=== PATIENT | female | born 1990 | race African-American/Black ===

== ENCOUNTER → 2021-04-24 | Outpatient (CLI) | payer OTHER ==
--- NOTE | 2021-04-25 10:31 | USB ---
Reason for exam: clinical finding. Physical Findings: Nurse did not find any significant physical abnormalities on exam. US Breast RT Right complete breast ultrasound includes all four quadrants, the retroareolar region and axilla. Finding demonstrates no cystic or solid lesion seen. These results were verbally communicated with the patient and result sheet given to the patient on 04/24/21. ASSESSMENT: Negative, BI-RAD 1 RECOMMENDATION: Routine screening mammogram of both breasts at age 42. (unless clinical indication to start sooner) Manage patient on a clinical basis. Clinical follow up for any suspicious palpable abnormality.
== END | disposition home or self-care (01) ==
LOC: RADUSWWP 14:56
PROVIDERS: ATTEND Family Medicine
DX: R92.8 Other abnormal and inconclusive findings on diagnostic imaging of breast (principal)

== ENCOUNTER → 2022-12-22 | Outpatient (CLI) | payer OTHER | LOC: CPPFTMAIN 16:34 | PROVIDERS: ATTEND Family Medicine | DX: J45.30 Mild persistent asthma, uncomplicated (principal) | CPT/HCPCS: 94060; 94726; 94729 ==

== ENCOUNTER 2024-02-07 20:57 | Emergency (ER) | payer SELFPAY ==
[2024-02-07 21:08] VITALS: TEMP 98
[2024-02-07] MEDS: KETOCONAZOLE 2% SHAMPOO 1 APPLIC/ML TOPICAL STA (21:35)
--- NOTE | 2024-02-07 21:50 | ED ---
Recheck HPI - General Chief Complaint: Recheck/Abnormal Lab/Rx Stated Complaint: Med refill-Seizures Time Seen by Provider: 02/07/24 21:09 Source: patient, RN notes reviewed Mode of arrival: ambulatory Limitations: no limitations - History of Present Illness Initial Comments: This is a 34-year-old female who presents to the emergency department for a med ication refill. Patient has a seizure disorder and most recently had a seizure a month ago. Currently taking Keppra 500 mg twice daily and Depakote 500 mg twice daily. She just finished her last dose of medication today. She does admit to a few missed doses here and there but is otherwise taking it as prescribed. Denies any side effects. She has lost her insurance for period of time and just got it back. She is currently looking for a local neurologist. Additionally, she reports dryness or scabs on her scalp and inquired about treatment for this. States that these are fairly itchy. - Related Data Previous Rx's Medication Instructions Recorded Divalproex [Depakote] 500 mg PO BID #60 tab 02/07/24 Divalproex [Depakote] 500 mg PO BID #60 tab 02/07/24 levETIRAcetam [Keppra] 500 mg PO Q12HR #60 tab 02/07/24 levETIRAcetam [Keppra] 500 mg PO Q12HR #60 tab 02/07/24 Allergies Allergy/AdvReac Type Severity Reaction Status Date / Time lamotrigine [From Lamictal] Allergy Unknown Verified 02/07/24 21:08 Review of Systems ROS Statement: Those systems with pertinent positive or pertinent negative responses have been documented in the HPI. ROS Other: All systems not noted in ROS Statement are negative. Past Medical History Past Medical History: Asthma, Seizure Disorder History of Any Multi-Drug Resistant Organisms: None Reported Past Surgical History: No Surgical Hx Reported Past Psychological History: No Psychological Hx Reported Smoking Status: Never smoker Past Alcohol Use History: Occasional Past Drug Use History: Marijuana General Exam Limitations: no limitations General appearance: alert, in no apparent distress Head exam: Present: other (Few areas of dry skin on the scalp. No discoloration or active bleeding.) Eye exam: Present: normal appearance, PERRL, EOMI. Absent: scleral icterus, conjunctival injection, periorbital swelling Respiratory exam: Present: normal lung sounds bilaterally. Absent: respiratory distress, wheezes, rales, rhonchi, stridor Cardiovascular Exam: Present: regular rate, normal rhythm, normal heart sounds. Absent: systolic murmur, diastolic murmur, rubs, gallop, clicks Neurological exam: Present: alert, oriented X3, CN II-XII intact Psychiatric exam: Present: normal affect, normal mood Skin exam: Present: warm, dry Course Vital Signs 02/07/24 02/07/24 21:02 21:55 Temperature 98.0 F Pulse Rate 79 85 Respiratory 18 16 Rate Blood Pressure 110/73 117/76 O2 Sat by Pulse 100 100 Oximetry Medical Decision Making - Medical Decision Making This is a 34-year-old female who presents to the emergency department for a medication refill and dryness on her scalp. Was pt. sent in by a medical professional or institution? @ -No Did you speak to anyone other than the patient for history? @ -No Did you review nursing and triage notes? @ -Yes, and I agree, it is accurate with regards to the patient's symptoms. Were old charts reviewed? @ -No Differential Diagnosis? @ -Differential Scalp Dryness: Dandruff, seborrheic dermatitis, eczema, bacterial infection, this is not meant to be and all-inclusive list. EKG interpreted by me (3pts min.)? @ -Not obtained X-rays interpreted by me (1pt min.)? @ -Not obtained CT interpreted by me (1pt min.)? @ -Not obtained U/S interpreted by me (1pt. min.)? @ -Not obtained What testing was considered but not performed? (CT, X-rays, U/S, labs)? Why? @ -None What meds were considered but not given? Why? @ -None Did you discuss the management of the patient with other professionals? @ -No Did you reconcile home meds? @ -No Was smoking cessation discussed for >3mins.? @ -No Was critical care preformed (if so, how long)? @ -No Were there social determinants of health that impacted care today? How? (Homelessness, low income, unemployed, alcoholism, drug addiction, transportation, low edu. Level, literacy, decrease access to med. care, residential, rehab)? @ -No Was there de-escalation of care discussed even if they declined? (Discuss DNR or withdrawal of care, Hospice)? @ -No What co-morbidities impacted this encounter? (DM, HTN, Smoking, COPD, CAD, Cancer, CVA, Hep., AIDS, mental health diagnosis, sleep apnea, morbid obesity)? @ -Seizure disorder Was patient admitted / discharged? @ -Discharged. Keppra and valproic acid levels were ordered. Advised that these are send out tests and the family can follow-up on them tomorrow. Refill on Keppra and valproic acid were provided. These were sent to the pharmacy and printed out in the event the pharmacy does not accept her new insurance. On examination of her scalp, this appears to be dandruff causing the itching. She was sent home with ketoconazole shampoo. Advised that this can also be purchased [id number]. She was also given information for follow-up with local neurologists. Undiagnosed new problem with uncertain prognosis? @ -None Drug Therapy requiring intensive monitoring for toxicity (Heparin, Nitro, Insulin, Cardizem)? @ -None Were any procedures done? @ -None Diagnosis/symptom? @ -Encounter for medication refill, dandruff Acute, or Chronic, or Acute on Chronic? @ -Acute Uncomplicated (without systemic symptoms) or Complicated (systemic symptoms)? @ -Uncomplicated Side effects of treatment? @ -None Exacerbation, Progression, or Severe Exacerbation] @ -Not applicable Poses a threat to life or bodily function? @ -No Return precautions reviewed in depth, the patient is instructed to return to the emergency department with any new, worsening, or concerning symptoms. Patient verbalized understanding. This case was discussed in detail with the attending ED physician, Dr. Solo. Presentation, findings, and treatment plan discussed in detail as well. - Lab Data Lab Results 02/07/24 Range/Units 21:25 Valproic Acid 22.1 ug/mL Disposition Clinical Impression: Encounter for medication refill, Seizure disorder, Dandruff Disposition: HOME SELF-CARE Condition: Stable Instructions (If sedation given, give patient instructions): Recurrent Seizures in Adults (ED) Additional Instructions: Return to the emergency department with any new, worsening, or concerning symptoms. Take both of your seizure medications as prescribed. Use the prescription savings card called [employer] in the event your insurance will not cover your prescriptions. You can simply ask the pharmacy to bill it through [employer] or show them the card. This can also be downloaded as an herve on your phone. You can use the ketoconazole shampoo provided to see if it helps with your scalp. You can also purchase this [id number]. Look into the local primary care providers and neurologists provided to see if any of them will accept your insurance and try to become established for ongoing care. Prescriptions: Divalproex [Depakote] 500 mg PO BID #60 tab Divalproex [Depakote] 500 mg PO BID #60 tab levETIRAcetam [Keppra] 500 mg PO Q12HR #60 tab levETIRAcetam [Keppra] 500 mg PO Q12HR #60 tab Is patient prescribed a controlled substance at d/c from ED?: No Referrals: None,Stated [Primary Care Provider] - 1-2 days Gus Garcia DO [STAFF PHYSICIAN] - 1-2 days Kristi Love MD [Medical Doctor] - 1-2 days Jalyn Russell MD [REFERRING] - 1-2 days Velia Russell MD [REFERRING] - 1-2 days Forms: Area PCPs Time of Disposition: 21:50
[2024-02-07 22:05] VITALS: BP 117/76; PULSE 85; RESP 16
== END 2024-02-07 21:55 | disposition home or self-care (01) ==
LOC: EC 20:57
DX: G40.909 Epilepsy, unspecified, not intractable, without status epilepticus (principal); Z76.0 Encounter for issue of repeat prescription; L21.0 Seborrhea capitis; Z88.8 Allergy status to other drugs, medicaments and biological substances
CPT/HCPCS: 36415; 80164; 80177; 99284

== ENCOUNTER 2024-05-14 13:34 | Emergency (ER) | payer OTHER ==
[2024-05-14 13:44] VITALS: RESP 18
--- NOTE | 2024-05-14 15:09 | ED ---
ENT HPI - General Chief complaint: ENT Stated complaint: Throat Pain Time Seen by Provider: 05/14/24 15:09 Source: patient, RN notes reviewed Mode of arrival: ambulatory Limitations: no limitations - History of Present Illness Initial comments: 34-year-old female presented to the ER with a chief complaint of cough, congestion, sore throat and ear pain. Patient states symptoms started to have a cough on Wednesday which has progressively worsened throughout the week. She denies any known fevers but states she feels chilled. She has taken over-the-co unter zinc lozenges and Sudafed without relief. Patient does report a history of asthma but denies any difficulty breathing or wheezing. No chest pain. No other complaints. - Related Data Previous Rx's Medication Instructions Recorded Divalproex [Depakote] 500 mg PO BID #60 tab 02/07/24 Divalproex [Depakote] 500 mg PO BID #60 tab 02/07/24 levETIRAcetam [Keppra] 500 mg PO Q12HR #60 tab 02/07/24 levETIRAcetam [Keppra] 500 mg PO Q12HR #60 tab 02/07/24 Amoxicillin 500 mg PO Q12HR #20 capsule 05/14/24 Allergies Allergy/AdvReac Type Severity Reaction Status Date / Time lamotrigine [From Lamictal] Allergy Unknown Verified 05/14/24 13:43 Review of Systems ROS Statement: Those systems with pertinent positive or pertinent negative responses have been documented in the HPI. ROS Other: All systems not noted in ROS Statement are negative. Past Medical History Past Medical History: Asthma, Seizure Disorder History of Any Multi-Drug Resistant Organisms: None Reported Past Surgical History: No Surgical Hx Reported Past Psychological History: No Psychological Hx Reported Smoking Status: Never smoker Past Alcohol Use History: Occasional Past Drug Use History: Marijuana General Exam Limitations: no limitations General appearance: alert, in no apparent distress ENT exam: Present: mucous membranes moist (Erythematous edematous bilateral tonsils with white exudates present. Oropharynx patent), TM's normal bilaterally Neck exam: Present: normal inspection. Absent: tenderness, meningismus, lymphadenopathy Respiratory exam: Present: normal lung sounds bilaterally. Absent: respiratory distress, wheezes, rales, rhonchi, stridor Cardiovascular Exam: Present: regular rate, normal rhythm, normal heart sounds. Absent: systolic murmur, diastolic murmur, rubs, gallop, clicks Neurological exam: Present: alert, oriented X3, CN II-XII intact Skin exam: Present: warm, dry, intact, normal color. Absent: rash Course Vital Signs 05/14/24 13:40 Temperature 98.4 F Pulse Rate 82 Respiratory 18 Rate Blood Pressure 112/71 O2 Sat by Pulse 99 Oximetry Medical Decision Making - Medical Decision Making Was pt. sent in by a medical professional or institution (KAMILLA Daniel, YARD SWITCH OPERATOR, urgent care, hospital, or fdc...) When possible be specific @ -No Did you speak to anyone other than the patient for history (EMS, parent, family, police, friend...)? What history was obtained from this source @ -No Did you review nursing and triage notes (agree or disagree)? Why? @ -I reviewed and agree with nursing and triage notes Were old charts reviewed (outside hosp., previous admission, EMS record, old EKG, old radiological studies, urgent care reports/EKG's, fdc records)? Report findings @ -No old charts were reviewed Differential Diagnosis (chest pain, altered mental status, abdominal pain women, abdominal pain men, vaginal bleeding, weakness, fever, dyspnea, syncope, headache, dizziness, GI bleed, back pain, seizure, CVA, palpatations, mental health, musculoskeletal)? @ -COVID, RSV, influenza, viral sinusitis, pneumonia this list is not meant to be all-inclusive EKG interpreted by me (3pts min.). @ -None done X-rays interpreted by me (1pt min.). @ -CXR interpreted by me negative for acute cardiopulmonary process. CT interpreted by me (1pt min.). @ -None done U/S interpreted by me (1pt. min.). @ -None done What testing was considered but not performed or refused? (CT, X-rays, U/S, labs)? Why? @ -None What meds were considered but not given or refused? Why? @ -None Did you discuss the management of the patient with other professionals (professionals i.e. KAMILLA Daniel, YARD SWITCH OPERATOR, lab, RT, psych nurse, social science research assistant, business continuity director, teacher, military source operations officer, pillowcase maker)? Give summary @ -No Was smoking cessation discussed for >3mins.? @ -No Was critical care preformed (if so, how long)? @ -No Were there social determinants of health that impacted care today? How? (Homelessness, low income, unemployed, alcoholism, drug addiction, transportation, low edu. Level, literacy, decrease access to med. care, alf, rehab)? @ -No Was there de-escalation of care discussed even if they declined (Discuss DNR or withdrawal of care, Hospice)? DNR status @ -No What co-morbidities impacted this encounter? (DM, HTN, Smoking, COPD, CAD, Cancer, CVA, ARF, Chemo, Hep., AIDS, mental health diagnosis, sleep apnea, morbid obesity)? @ -None Was patient admitted / discharged? Hospital course, mention meds given and route, prescriptions, significant lab abnormalities, going to OR and other pertinent info. @ -Discharge. 34-year-old female presented to ER with a chief complaint of sore throat, cough and fever x 2 days. History and physical exam completed. Vitals stable. Patient no signs of acute distress. Exam remarkable for bilateral erythematous edematous tonsils with white exudates present. Viral swabs and strep negative. Chest x-ray negative. Patient received IM Decadron and p.o. ibuprofen in the ER for symptom control. Due to physical exam findings concerning of bacterial pharyngitis patient will be started on amoxicillin. Upon reevaluation, patient resting comfortably in exam room no signs of acute distress. Results discussed with patient, all questions answered. Patient stable for discharge at this time with outpatient follow-up. Strict return parameters discussed. Patient discharged in stable condition with follow-up to PCP. Patient verbally expressed understanding and agreement with care plan. Case discussed with ED attending, Dr. Mo. Undiagnosed new problem with uncertain prognosis? @ -No Drug Therapy requiring intensive monitoring for toxicity (Heparin, Nitro, Insulin, Cardizem)? @ -No Were any procedures done? @ -No Diagnosis/symptom? @ -Bacterial pharyngitis Acute, or Chronic, or Acute on Chronic? @ -Acute Uncomplicated (without systemic symptoms) or Complicated (systemic symptoms)? @ -Uncomplicated Side effects of treatment? @ -No Exacerbation, Progression, or Severe Exacerbation? @ -No Poses a threat to life or bodily function? How? (Chest pain, [place], [place], pneumonia, PE, COPD, DKA, ARF, appy, cholecystitis, CVA, Diverticulitis, Homicidal, Suicidal, threat to staff... and all critical care pts) @ -No - Lab Data Lab Results 05/14/24 05/14/24 Range/Units 15:21 15:21 Influenza Type A (PCR) Not Detected (Not Detectd) Influenza Type B (PCR) Not Detected (Not Detectd) RSV (PCR) Not Detected (Not Detectd) SARS-CoV-2 (PCR) Not Detected (Not Detectd) Group A Strep (PCR) NOT DETECTED (Not Detectd) - Radiology Data Radiology results: report reviewed, image reviewed Disposition Clinical Impression: Bacterial pharyngitis Disposition: HOME SELF-CARE Condition: Stable Instructions (If sedation given, give patient instructions): Pharyngitis (ED) Additional Instructions: Complete full course of amoxicillin. Follow-up with PCP. I recommend [id number] ibuprofen and Tylenol for fever and pain control. Return to the ER for any new or worsening concerns. Prescriptions: Amoxicillin 500 mg PO Q12HR #20 capsule Is patient prescribed a controlled substance at d/c from ED?: No Referrals: None,Stated [Primary Care Provider] - 1-2 days Forms: Area PCPs Time of Disposition: 16:25
[2024-05-14] MEDS: IBUPROFEN 600 MG TAB PO STA (15:15)
[2024-05-14] MEDS: DEXAMETHASONE SOD PHOSPHATE 4 MG/ML 1 ML VIAL IM STA (15:15)
--- NOTE | 2024-05-14 15:42 | XR ---
EXAMINATION TYPE: XR chest 2V DATE OF EXAM: 05/14/2024 3:29 PM COMPARISON: None CLINICAL INDICATION: Female, 34 years old with history of cough fever; [facility] TECHNIQUE: XR chest 2V Frontal and lateral views of the chest. FINDINGS: Lungs/Pleura: There is no evidence of pleural effusion, focal consolidation, or pneumothorax. Pulmonary vascularity: Unremarkable. Heart/mediastinum: Cardiomediastinal silhouette is unremarkable. Musculoskeletal: No acute osseous pathology. IMPRESSION: No acute cardiopulmonary disease/process. [facility], , 05/14/2024 3:39 PM
[2024-05-14 16:37] VITALS: BP 120/81; PULSE 92; TEMP 97.9
== END 2024-05-14 16:50 | disposition home or self-care (01) ==
LOC: EC 13:34
CPT/HCPCS: 71046; 87636; 87651; 96372; 99283

== ENCOUNTER 2024-06-15 17:00 | Emergency (ER) | payer OTHER ==
[2024-06-15 17:10] VITALS: RESP 18
--- NOTE | 2024-06-15 17:27 | ED ---
General Adult HPI - General Chief complaint: Seizure Stated complaint: Seizure Time Seen by Provider: 06/15/24 17:00 Source: patient, EMS, RN notes reviewed, old records reviewed Mode of arrival: EMS Limitations: no limitations - History of Present Illness Initial comments: Patient is a 34-year-old female with past medical history remarkable for seizure disorder who presents emergency department after a seizure. States she smoked marijuana and then ate Thanksgiving dinner. Subsequently had a seizure. Apparently lasted 90 seconds and was witnessed. Previous seizure was in November 2023. States she feels postictal but otherwise is alert and oriented x 4 with no obvious deficits or complaints. Did experience an episode of emesis followin g the seizure. She denies biting her tongue. Denies abdominal pain no chest pain, shortness of breath. Has no other acute complaints at this time. Presents for further evaluation at this time. Patient takes Keppra and Depakote. States she intermittently will miss doses. Unknown last missed dose. Believes she took them this morning. - Related Data Previous Rx's Medication Instructions Recorded Divalproex [Depakote] 500 mg PO BID #60 tab 02/07/24 Divalproex [Depakote] 500 mg PO BID #60 tab 02/07/24 levETIRAcetam [Keppra] 500 mg PO Q12HR #60 tab 02/07/24 levETIRAcetam [Keppra] 500 mg PO Q12HR #60 tab 02/07/24 Amoxicillin 500 mg PO Q12HR #20 capsule 05/14/24 Allergies Allergy/AdvReac Type Severity Reaction Status Date / Time lamotrigine [From Lamictal] Allergy Unknown Verified 05/14/24 13:43 Review of Systems ROS Statement: Those systems with pertinent positive or pertinent negative responses have been documented in the HPI. Review of Systems: CONST: Denies fever EYES: Denies blurry vision ENT: Denies nasal congestion C/V: Denies Chest pain RESP: Denies shortness of breath GI: Denies abdominal pain : Denies dysuria SKIN: Denies rash. MSK: Denies joint pain. NEURO: Denies headache ROS Other: All systems not noted in ROS Statement are negative. Past Medical History Past Medical History: Asthma, Seizure Disorder History of Any Multi-Drug Resistant Organisms: None Reported Past Surgical History: No Surgical Hx Reported Past Psychological History: No Psychological Hx Reported Smoking Status: Never smoker Past Alcohol Use History: Occasional Past Drug Use History: Marijuana General Exam - General Exam Comments Initial Comments: General: Appears in no acute distress. HEAD: Normal with no signs of head trauma. EYES: PERRLA, EOMI, conjunctiva normal, no discharge.Pupils are 3 mm and equal bilaterally. ENT: Hearing grossly intact, normal oropharynx. RESPIRATORY: Clear breath sounds bilaterally. No wheezes, rales, or rhonchi. C/V: Regular rate and rhythm. S1 and S2 auscultated, no edema, peripheral pulses 2+ and intact throughout ABD: Abd is soft, nontender, nondistended EXT: Normal range of motion, no obvious deformity SKIN: No rashes or lesions observed on exposed skin. NEURO: Alert and oriented x 4. Cranial nerves II-XII intact. No focal sensory or strength deficits. Limitations: no limitations Course Vital Signs 06/15/24 06/15/24 17:04 18:50 Temperature 98.6 F 98.2 F Pulse Rate 110 H 103 H Respiratory 18 18 Rate Blood Pressure 140/80 121/84 O2 Sat by Pulse 98 100 Oximetry Medical Decision Making - Medical Decision Making Was pt. sent in by a medical professional or institution (, PA, [employer], urgent care, hospital, or skilled nursing...) When possible be specific @ -No Did you speak to anyone other than the patient for history (EMS, parent, family, police, friend...)? What history was obtained from this source @ -No Did you review nursing and triage notes (agree or disagree)? Why? @ -I reviewed and agree with nursing and triage notes Were old charts reviewed (outside hosp., previous admission, EMS record, old EKG, old radiological studies, urgent care reports/EKG's, skilled nursing records)? Report findings @ -Old charts reviewed confirming patient is on Depakote and Keppra for epilepsy. Takes 500 mg twice daily for both medications. Differential Diagnosis (chest pain, altered mental status, abdominal pain women, abdominal pain men, vaginal bleeding, weakness, fever, dyspnea, syncope, headache, dizziness, GI bleed, back pain, seizure, CVA, palpatations, mental health, musculoskeletal)? @ -Differential Seizure: Recurrent seizure disorder, febrile seizure, alcohol withdrawal, stimulants, meningitis, encephalitis, intercranial hemorrhage, intracranial tumor, stroke, eclampsia, thyrotoxicosis, hypocalcemia, hyponatremia, hypernatremia, hypomagnesemia, psychogenic, this is not meant to be an all-inclusive list. EKG interpreted by me (3pts min.). @ -As above X-rays interpreted by me (1pt min.). @ -Chest x-ray reveals no obvious acute cardiopulmonary process. CT interpreted by me (1pt min.). @ -None done U/S interpreted by me (1pt. min.). @ -None done What testing was considered but not performed or refused? (CT, X-rays, U/S, labs)? Why? @ -None What meds were considered but not given or refused? Why? @ -None Did you discuss the management of the patient with other professionals (amanda forbes i.e. , PA, [employer], lab, RT, psych nurse, high school social studies teacher, transit planning manager, teacher, dog license officer supervisor, wrapper caser)? Give summary @ -Does not require any refills on prescriptions, recommended follow-up with neurology in the next 1 to 3 days. Was smoking cessation discussed for >3mins.? @ -No Was critical care preformed (if so, how long)? @ -No Were there social determinants of health that impacted care today? How? (Homelessness, low income, unemployed, alcoholism, drug addiction, transportatio n, low edu. Level, literacy, decrease access to med. care, fpc, rehab)? @ -No Was there de-escalation of care discussed even if they declined (Discuss DNR or withdrawal of care, Hospice)? DNR status @ -No What co-morbidities impacted this encounter? (DM, HTN, Smoking, COPD, CAD, Cancer, CVA, ARF, Chemo, Hep., AIDS, mental health diagnosis, sleep apnea, morbid obesity)? @ -Epilepsy Was patient admitted / discharged? Hospital course, mention meds given and route, prescriptions, significant lab abnormalities, going to OR and other pertinent info. @ -Patient presents emergency department with breakthrough seizure. Typically does not smoke marijuana and smoked marijuana earlier today. Did discuss with her that this lowers seizure threshold as well as her intermittent compliance with her medications. Patient will be treated with IV fluids, a dose of IV Keppra. We will watch the patient for at least 2 hours here in the department. Will obtain laboratory studies. Mental status is nearly back to baseline. Vital signs within acceptable limits. She was in agreement this plan. Chest x- ray will be obtained over concern for possible aspiration as she did experience an episode of emesis following the seizure.Breakthrough seizure likely secondary to medication noncompliance. Patient's laboratory studies remarkable for negative Depakote level. Alcohol level is undetectable. Made the workup unremarkable. Chest x-ray reveals no obvious acute cardiopulmonary process. EKG unremarkable. Patient given a dose of her normal 500 mg Depakote. Recommended continuation of antiepileptic medications. She would like to go home at this time. Discussed with her she cannot drive or operate heavy machinery for the next 6 months. She expressed understanding. She will follow-up with her neurologist. Does not require refills on her prescriptions. Strict return precautions discussed. Recommended cessation of marijuana use. She was in agreement this plan. I instructed the patient to follow up with their PCP in the next 1-3 days. I explained that the patient should return to the emergency department if they experience any worsening symptoms. Strict return precautions were discussed with the patient. The patient expressed understanding of these instructions. I answered all questions that the patient had. The patient was discharged home in good condition with their prescriptions and follow up information. Undiagnosed new problem with uncertain prognosis? @ -No Drug Therapy requiring intensive monitoring for toxicity (Heparin, Nitro, Insulin, Cardizem)? @ -No Were any procedures done? @ -No Diagnosis/symptom? @ -Breakthrough seizure Acute, or Chronic, or Acute on Chronic? @ -Acute Uncomplicated (without systemic symptoms) or Complicated (systemic symptoms)? @ -uncomplicated Side effects of treatment? @ -None Exacerbation, Progression, or Severe Exacerbation] @ -No Poses a threat to life or bodily function? @ -Unlikely at this time - Lab Data Result diagrams: 06/15/24 17:22 06/15/24 18:00 Lab Results 06/15/24 06/15/24 06/15/24 Range/Units 17:22 18:00 19:05 WBC 8.4 (3.8-10.6) k/uL RBC 4.71 (3.80-5.40) m/uL Hgb 12.4 (11.4-16.0) gm/dL Hct 38.3 (34.0-46.0) % MCV 81.3 (80.0-100.0) fL MCH 26.3 (25.0-35.0) pg MCHC 32.4 (31.0-37.0) g/dL RDW 20.6 H (11.5-15.5) % Plt Count 358 (150-450) k/uL MPV 9.1 Neutrophils % 60 % Lymphocytes % 30 % Monocytes % 5 % Eosinophils % 2 % Basophils % 0 % Neutrophils # 5.0 (1.3-7.7) k/uL Lymphocytes # 2.5 (1.0-4.8) k/uL Monocytes # 0.4 (0-1.0) k/uL Eosinophils # 0.2 (0-0.7) k/uL Basophils # 0.0 (0-0.2) k/uL Hypochromasia Slight Anisocytosis Moderate Microcytosis Moderate Sodium 135 L (137-145) mmol/L Potassium 4.2 (3.5-5.1) mmol/L Chloride 108 H (98-107) mmol/L Carbon Dioxide 25 (22-30) mmol/L Anion Gap 2 mmol/L BUN 8 (7-17) mg/dL Creatinine 0.80 (0.52-1.04) mg/dL Est GFR (CKD-EPI)AfAm >90 (>60 ml/min/1.73 sqM) Est GFR (CKD-EPI)NonAf >90 (>60 ml/min/1.73 sqM) Glucose 78 (74-99) mg/dL Calcium 8.9 (8.4-10.2) mg/dL Magnesium 1.9 (1.6-2.3) mg/dL Total Bilirubin 0.2 (0.2-1.3) mg/dL AST 16 (14-36) U/L ALT 12 (4-34) U/L Alkaline Phosphatase 70 (38-126) U/L Total Protein 7.2 (6.3-8.2) g/dL Albumin 3.8 (3.5-5.0) g/dL Urine Color Colorless Urine Appearance Clear (Clear) Urine pH 6.0 (5.0-8.0) Ur Specific [place] 1.017 (1.001-1.035) Urine Protein Negative (Negative) Urine Glucose (UA) Negative (Negative) Urine Ketones Negative (Negative) Urine Blood Small H (Negative) Urine Nitrite Negative (Negative) Urine Bilirubin Negative (Negative) Urine Urobilinogen <2.0 (<2.0) mg/dL Ur Leukocyte Esterase Negative (Negative) Urine WBC 2 (0-5) /hpf Ur Squamous Epith Cells 1 (0-4) /hpf Urine Bacteria Rare H (None) /hpf Urine Mucus Rare H (None) /hpf Valproic Acid <10.0 ug/mL Serum Alcohol <10 mg/dL - EKG Data -: EKG Interpreted by Me EKG Comments: 12-lead Electrocardiogram Interpretation Note EKG was reviewed and interpreted by myself. 12-lead ECG performed at 1743 is interpreted by me as revealing sinus tachycardia at a rate of 111 beats per minute. Byers is normal. VA interval is 124 ms. QRS duration is 88 ms, QTc is [address] segment or T wave abnormalities that are acute. R wave progression across the precordium was satisfactory. By my interpretation this EKG is non-diagnostic for acute ischemia. Disposition Clinical Impression: Breakthrough seizure Disposition: HOME SELF-CARE Condition: Good Instructions (If sedation given, give patient instructions): Seizure/Epilepsy Discharge Instructions & Follow-Up Additional Instructions: Follow-up with your neurologist in the next 1 to 3 days. No operating heavy machinery or motor vehicles for at least 6 months as you had a breakthrough seizure today. Please be compliant with your medications. Avoid marijuana as this does reduce your seizure threshold. Return if any worsening symptoms. Is patient prescribed a controlled substance at d/c from ED?: No Referrals: Elisa Castorena MD [Primary Care Provider] - 1-2 days Time of Disposition: 19:16
[2024-06-15] MEDS: SODIUM CHLORIDE 0.9% 1,000 ML IV STA ×2 (17:32)
--- NOTE | 2024-06-15 17:35 | XR ---
EXAMINATION TYPE: XR chest 2V DATE OF EXAM: 06/15/2024 5:29 PM COMPARISON: Chest radiograph 05/14/2024. CLINICAL INDICATION: Female, 34 years old with history of seizure, eval for aspiration; [facility] TECHNIQUE: XR chest 2V Frontal and lateral views of the chest. FINDINGS: Lungs/Pleura: There is no evidence of pleural effusion, focal consolidation, or pneumothorax. Pulmonary vascularity: Unremarkable. Heart/mediastinum: Cardiomediastinal silhouette is unremarkable. Musculoskeletal: No acute osseous pathology. Other findings: None IMPRESSION: No acute cardiopulmonary disease/process. [facility], , 06/15/2024 5:33 PM
[2024-06-15 17:42] LABS: Anisocytosis Moderate; Basophils % (A) 0 %; Eosinophils # (A) 0.2 k/uL (0-0.7); Eosinophils % (A) 2 %; HCT 38.3 % (34.0-46.0); HGB 12.4 gm/dL (11.4-16.0); Hypochromasia Slight; Lymphocytes # (A) 2.5 k/uL (1.0-4.8); Lymphocytes % (A) 30 %; MCH 26.3 pg (25.0-35.0); MCHC 32.4 g/dL (31.0-37.0); MCV 81.3 fL (80.0-100.0); Mean Platelet Volume 9.1; Microcytosis Moderate; Monocytes # (A) 0.4 k/uL (0-1.0); Monocytes % (A) 5 %; Neutrophils % (A) 60 %; Platelet Count 358 k/uL (150-450); RBC 4.71 m/uL (3.80-5.40); RDW 20.6 % (11.5-15.5); WBC 8.4 k/uL (3.8-10.6)
[2024-06-15 18:27] LABS: ALT 12 U/L (4-34); AST 16 U/L (14-36); African American GFR (CKD) >90 (>60 ml/min/1.73 sqM); Albumin 3.8 g/dL (3.5-5.0); Alcohol <10 mg/dL; Alkaline Phosphatase 70 U/L (38-126); Anion Gap 2 mmol/L; Blood Urea Nitrogen 8 mg/dL (7-17); Calcium 8.9 mg/dL (8.4-10.2); Carbon Dioxide 25 mmol/L (22-30); Chloride 108 mmol/L (98-107); Glucose 78 mg/dL (74-99); Magnesium 1.9 mg/dL (1.6-2.3); Non-African American GFR(CKD) >90 (>60 ml/min/1.73 sqM); Potassium 4.2 mmol/L (3.5-5.1); Sodium 135 mmol/L (137-145); Total Bilirubin 0.2 mg/dL (0.2-1.3); Total Protein 7.2 g/dL (6.3-8.2)
[2024-06-15 18:32] LABS: Valproic Acid (Depakene) <10.0 ug/mL
[2024-06-15] MEDS: DIVALPROEX 500 MG TABLET.DR PO STA (19:15)
[2024-06-15] MEDS: levETIRAcetam IV 500 MG/5 ML VIAL IVP STA (19:16)
[2024-06-15 19:33] LABS: Appearance,Urine Clear (Clear); Bacteria,Urine Rare /hpf; Bilirubin,Urine Negative (Negative); Blood,Urine Small (Negative); Color,Urine Colorless; Glucose,Urine (UA) Negative (Negative); Ketones,Urine Negative (Negative); Leukocyte Esterase,Urine Negative (Negative); Mucus,Urine Rare /hpf; Nitrite,Urine Negative (Negative); Protein,Urine Negative (Negative); Specific Gravity,Urine 1.017 (1.001-1.035); Squamous Epithelial Cell,Urine 1 /hpf (0-4); Urobilinogen,Urine <2.0 mg/dL (<2.0); WBC,Urine 2 /hpf (0-5)
[2024-06-15 20:20] VITALS: BP 126/81; PULSE 100; TEMP 98.4
== END 2024-06-15 20:30 | disposition home or self-care (01) ==
LOC: SUPCPDRO 17:00 → EC 17:00
DX: G40.909 Epilepsy, unspecified, not intractable, without status epilepticus (principal); R00.0 Tachycardia, unspecified; Z88.8 Allergy status to other drugs, medicaments and biological substances
CPT/HCPCS: 36415; 93005; 80164; 80053; 83735; 85025; 81001; 80320; 71046; 99285; 96374; 96361 ×3; J1953